=== PATIENT | male | born 1950 | race Caucasian/White ===

== ENCOUNTER 2020-01-28 19:42 | Emergency (ER) | payer MEDICARE ==
[2020-01-28] MEDS ORDERED: Insulin Regular 300 UNITS/3 ML VIAL ONE (20:13)
[2020-01-28 20:16] LABS: Bilirubin Negative (Negative); Blood, Urine Negative (Negative); Clarity Clear (Clear); Glucose, Urine (Dipstick) 500 mg/dL (Negative); Leukocyte Negative (Negative); Nitrite Negative (Negative); Protein, Urine (Dipstick) Negative (Neg-Trace); Urobilinogen 0.2 mg/dL (Less than 2)
[2020-01-28 20:20] LABS: #Basophils 0.1 thou/uL (0.0-0.2); #Eosinphils 0.4 thou/uL (0.0-0.7); #Lymphocytes 2.7 thou/uL (1.20-3.40); #Monocytes 0.9 thou/uL (0.11-0.59); #Neutrophils 5.5 thou/uL (1.40-6.50); %Basophils 1.4 % (0.0-1.0); %Eosinophils 4.2 % (0.0-10.0); %Lymphocytes 28.1 % (21.0-51.0); %Neutrophils 57.3 % (42.0-75.0); Hemoglobin 12.3 g/dL (14.0-18.0); Mean Corpuscular HGB CONC 30.2 g/dL (32.0-36.0); Mean Corpuscular Hemoglobin 28.1 pg (27.0-31.0); Mean Corpuscular Volume 93.2 fL (78.0-98.0); Mean Platelet Volume 10.6 fL (7.4-10.4); Platelet Count 189 thou/uL (130-400); RBC Distribution Width 12.9 % (11.5-14.5); Red Blood Cell (RBC) Count 4.38 mill/uL (4.70-6.10); White Blood Cell (WBC) Count 9.6 thou/uL (4.8-10.8)
[2020-01-28 20:27] LABS: ALT (SGPT) 16 U/L (8-55); AST (SGOT) 12 U/L (5-34); Albumin 3.7 g/dL (3.4-4.8); Alkaline Phosphatase 56 U/L (40-110); Anion Gap 13 mmol/L (10-20); BUN (Urea Nitrogen) 13 mg/dL (8.4-25.7); Bilirubin, Total 0.3 mg/dL (0.2-1.2); Calc. Creatinine Clearance 0 mL/min (70-130); Calcium 8.6 mg/dL (7.8-10.44); Carbon Dioxide 27 mmol/L (23-31); Chloride 95 mmol/L (98-107); Estimated GFR-MDRD 78; Globulin 2.8 g/dL (2.4-3.5); Glucose 455 mg/dL (80-115); Potassium 4.1 mmol/L (3.5-5.1); Protein, Total 6.5 g/dL (5.8-8.1); Sodium 131 mmol/L (136-145)
== END 2020-01-28 22:00 | disposition home or self-care (01) ==
LOC: NAV ERS 19:42
DX: E11.65 Type 2 diabetes mellitus with hyperglycemia (principal); E11.40 Type 2 diabetes mellitus with diabetic neuropathy, unspecified; E78.5 Hyperlipidemia, unspecified; E78.00 Pure hypercholesterolemia, unspecified; I10 Essential (primary) hypertension; F41.9 Anxiety disorder, unspecified; K21.9 Gastro-esophageal reflux disease without esophagitis; I25.10 Atherosclerotic heart disease of native coronary artery without angina pectoris; Z79.4 Long term (current) use of insulin; Z87.891 Personal history of nicotine dependence; Z79.899 Other long term (current) drug therapy; Z79.82 Long term (current) use of aspirin
CPT/HCPCS: 36416; 80053; 81003; 84484; 85025; 93005; J1815

== ENCOUNTER 2020-03-02 13:00 | Emergency (ER) | payer MEDICARE, OTHER ==
[2020-03-03 13:29] LABS: SARS-CoV-2 MS2 Positive; SARS-CoV-2 N Gene Negative; SARS-CoV-2 S Gene Negative; SARS-CoV-2 by NAA Not Detected (NotDetected); SARS-CoV-2 orf1ab Negative
== END 2020-03-02 14:50 | disposition home or self-care (01) ==
LOC: NAV ERS 13:00
DX: H53.8 Other visual disturbances (principal); Z20.828 Contact with and (suspected) exposure to other viral communicable diseases; I25.10 Atherosclerotic heart disease of native coronary artery without angina pectoris; E11.40 Type 2 diabetes mellitus with diabetic neuropathy, unspecified; Z79.4 Long term (current) use of insulin; E78.5 Hyperlipidemia, unspecified; E78.00 Pure hypercholesterolemia, unspecified; I10 Essential (primary) hypertension; F41.9 Anxiety disorder, unspecified; Z87.891 Personal history of nicotine dependence; Z79.82 Long term (current) use of aspirin; Z79.899 Other long term (current) drug therapy
CPT/HCPCS: 99284; U0003; 87635

== ENCOUNTER 2020-03-08 21:00 | Emergency (ER) | payer MEDICARE, OTHER ==
[2020-03-08] MEDS ORDERED: Aspirin Chewable 81 MG TAB ONE (21:39)
[2020-03-08 21:46] LABS: #Basophils 0.2 thou/uL (0.0-0.2); #Eosinphils 0.4 thou/uL (0.0-0.7); #Lymphocytes 3.4 thou/uL (1.20-3.40); #Neutrophils 6.5 thou/uL (1.40-6.50); %Basophils 1.4 % (0.0-1.0); %Eosinophils 3.4 % (0.0-10.0); %Lymphocytes 29.8 % (21.0-51.0); %Monocytes 8.8 % (0.0-10.0); %Neutrophils 56.5 % (42.0-75.0); Hemoglobin 12.8 g/dL (14.0-18.0); Mean Corpuscular HGB CONC 30.6 g/dL (32.0-36.0); Mean Corpuscular Hemoglobin 28.3 pg (27.0-31.0); Mean Corpuscular Volume 92.5 fL (78.0-98.0); Platelet Count 189 thou/uL (130-400); RBC Distribution Width 12.9 % (11.5-14.5); Red Blood Cell (RBC) Count 4.54 mill/uL (4.70-6.10); White Blood Cell (WBC) Count 11.4 thou/uL (4.8-10.8)
[2020-03-08] MEDS ORDERED: Nitroglycerin 2% Ointment 1 INCH/1 GM Packet ONE (21:59)
[2020-03-08 22:00] LABS: ALT (SGPT) 15 U/L (8-55); AST (SGOT) 18 U/L (5-34); Albumin 4.1 g/dL (3.4-4.8); Alkaline Phosphatase 56 U/L (40-110); Anion Gap 14 mmol/L (10-20); BUN (Urea Nitrogen) 16 mg/dL (8.4-25.7); Bilirubin, Total 0.3 mg/dL (0.2-1.2); Calc. Creatinine Clearance 0 mL/min (70-130); Calcium 9.6 mg/dL (7.8-10.44); Carbon Dioxide 26 mmol/L (23-31); Chloride 100 mmol/L (98-107); Estimated GFR-MDRD Greater than 90; Globulin 3.1 g/dL (2.4-3.5); Glucose 70 mg/dL (80-115); Potassium 3.3 mmol/L (3.5-5.1); Protein, Total 7.2 g/dL (5.8-8.1); Sodium 137 mmol/L (136-145)
--- NOTE | 2020-03-08 22:03 | RAD ---
EXAM: CHEST ONE VIEW HISTORY: Chest pain and dizziness. COMPARISON: None FINDINGS: Cardiac silhouette is magnified by projection. There is questionable small spiculated density in the left suprahilar region. This is most likely attributable to superimposition of vascular structures, but a follow-up PA and lateral chest x-ray is recommended. Lungs are otherwise clear. No consolidatio n or pleural fluid is appreciated.. The osseous structures are intact. IMPRESSION: Suggestion of a spiculated density left suprahilar region. This is probably attributable to the vascu lar structures and accentuated by portable technique. A follow-up PA and lateral chest x-ray is recommended for further evaluation.
[2020-03-08 22:19] LABS: CKMB 2.5 ng/mL (0-6.6)
== END 2020-03-08 22:35 | disposition short-term general hospital (02) ==
LOC: NAV ERS 21:00
DX: I16.0 Hypertensive urgency (principal); R07.9 Chest pain, unspecified; E11.40 Type 2 diabetes mellitus with diabetic neuropathy, unspecified; K21.9 Gastro-esophageal reflux disease without esophagitis; E78.5 Hyperlipidemia, unspecified; I10 Essential (primary) hypertension; Z87.891 Personal history of nicotine dependence
CPT/HCPCS: 71045; 80053; 82553; 84484; 85025; 93005; 94760

== ENCOUNTER 2020-05-01 09:29 | Emergency (ER) | payer MEDICARE ==
[2020-05-01] MEDS ORDERED: Silver Nitrate Application 1 EACH ONE (09:36)
[2020-05-01] MEDS ORDERED: Boostrix 0.5 ML VIAL ONE (09:41)
== END 2020-05-01 09:50 | disposition home or self-care (01) ==
LOC: NAV ERS 09:29
DX: S51.812A Laceration without foreign body of left forearm, initial encounter (principal); I25.10 Atherosclerotic heart disease of native coronary artery without angina pectoris; E11.40 Type 2 diabetes mellitus with diabetic neuropathy, unspecified; K21.9 Gastro-esophageal reflux disease without esophagitis; E78.5 Hyperlipidemia, unspecified; E78.00 Pure hypercholesterolemia, unspecified; I10 Essential (primary) hypertension; F41.9 Anxiety disorder, unspecified; Z87.891 Personal history of nicotine dependence; Z23 Encounter for immunization; Z79.4 Long term (current) use of insulin; Z79.899 Other long term (current) drug therapy; W22.8XXA Striking against or struck by other objects, initial encounter
CPT/HCPCS: 90471; 90715

== ENCOUNTER 2020-07-06 20:39 | Emergency (ER) | payer MEDICARE ==
[2020-07-06] MEDS ORDERED: Aspirin Chewable 81 MG TAB ONE (20:50)
[2020-07-06] MEDS ORDERED: Enoxaparin Sodium 100 MG/ML SYRINGE ONE (20:50)
[2020-07-06 21:04] LABS: #Basophils 0.1 thou/uL (0.0-0.2); #Eosinphils 0.5 thou/uL (0.0-0.7); #Lymphocytes 3.2 thou/uL (1.20-3.40); #Neutrophils 6.6 thou/uL (1.40-6.50); %Basophils 1.1 % (0.0-1.0); %Eosinophils 4.8 % (0.0-10.0); %Monocytes 8.4 % (0.0-10.0); %Neutrophils 57.7 % (42.0-75.0); Hemoglobin 15.2 g/dL (14.0-18.0); Mean Corpuscular HGB CONC 33.3 g/dL (32.0-36.0); Mean Corpuscular Hemoglobin 29.9 pg (27.0-31.0); Mean Corpuscular Volume 89.8 fL (78.0-98.0); Mean Platelet Volume 9.2 fL (7.4-10.4); Platelet Count 214 thou/uL (130-400); RBC Distribution Width 12.5 % (11.5-14.5); Red Blood Cell (RBC) Count 5.08 mill/uL (4.70-6.10); White Blood Cell (WBC) Count 11.5 thou/uL (4.8-10.8)
[2020-07-06 21:18] LABS: ALT (SGPT) 16 U/L (8-55); AST (SGOT) 17 U/L (5-34); Alkaline Phosphatase 54 U/L (40-110); Anion Gap 14 mmol/L (10-20); BUN (Urea Nitrogen) 24 mg/dL (8.4-25.7); Bilirubin, Total 0.3 mg/dL (0.2-1.2); Calc. Creatinine Clearance 0 mL/min (70-130); Calcium 9.1 mg/dL (7.8-10.44); Carbon Dioxide 27 mmol/L (23-31); Chloride 101 mmol/L (98-107); Estimated GFR-MDRD 73; Globulin 3.4 g/dL (2.4-3.5); Glucose 137 mg/dL (83-110); Lipase 40 U/L (8-78); Potassium 4.1 mmol/L (3.5-5.1); Protein, Total 7.4 g/dL (5.8-8.1); Sodium 138 mmol/L (136-145)
--- NOTE | 2020-07-06 21:23 | RAD ---
PORTABLE CHEST: 07/06/20 HISTORY: Shortness of breath. COMPARISON: 03/08/90 FINDINGS/IMPRESSION: Heart size mildly prominent and stable. Interstitial markings are prominent but also stable from prio r exam. Parenchymal stranding in the upper lung brenner appear stable. No definite infiltrate or acute interval change noted. POS: [facility]W
== END 2020-07-06 22:19 | disposition short-term general hospital (02) ==
LOC: NAV ERS 20:39
DX: I24.9 Acute ischemic heart disease, unspecified (principal); I10 Essential (primary) hypertension; E11.40 Type 2 diabetes mellitus with diabetic neuropathy, unspecified; K21.9 Gastro-esophageal reflux disease without esophagitis; E78.5 Hyperlipidemia, unspecified; E78.00 Pure hypercholesterolemia, unspecified; Z87.891 Personal history of nicotine dependence; Z79.899 Other long term (current) drug therapy
CPT/HCPCS: 36415; 71045; 80053; 83605; 83690; 83880; 84484; 85025; 93005; 96372; J1650

== ENCOUNTER 2020-08-20 07:56 | Emergency (ER) | payer MEDICARE | END 2020-08-20 08:50 | disposition home or self-care (01) | LOC: NAV ERS 07:56 | DX: L02.31 Cutaneous abscess of buttock (principal); E11.9 Type 2 diabetes mellitus without complications; Z79.4 Long term (current) use of insulin; K21.9 Gastro-esophageal reflux disease without esophagitis; I10 Essential (primary) hypertension; I25.10 Atherosclerotic heart disease of native coronary artery without angina pectoris; E78.5 Hyperlipidemia, unspecified; E78.00 Pure hypercholesterolemia, unspecified; Z87.891 Personal history of nicotine dependence; Z79.82 Long term (current) use of aspirin; Z79.899 Other long term (current) drug therapy | CPT/HCPCS: 99282 ==

== ENCOUNTER 2020-09-02 09:56 | Emergency (ER) | payer MEDICARE ==
[2020-09-02 11:08] LABS: #Basophils 0.1 thou/uL (0.0-0.2); #Eosinphils 0.4 thou/uL (0.0-0.7); #Lymphocytes 2.5 thou/uL (1.20-3.40); #Monocytes 0.9 thou/uL (0.11-0.59); #Neutrophils 5.8 thou/uL (1.40-6.50); %Eosinophils 3.8 % (0.0-10.0); %Lymphocytes 25.6 % (21.0-51.0); %Monocytes 9.3 % (0.0-10.0); %Neutrophils 60.2 % (42.0-75.0); Hemoglobin 14.8 g/dL (14.0-18.0); Mean Corpuscular HGB CONC 32.9 g/dL (32.0-36.0); Mean Corpuscular Hemoglobin 29.4 pg (27.0-31.0); Mean Corpuscular Volume 89.4 fL (78.0-98.0); Mean Platelet Volume 8.5 fL (7.4-10.4); Platelet Count 191 thou/uL (130-400); Red Blood Cell (RBC) Count 5.04 mill/uL (4.70-6.10); White Blood Cell (WBC) Count 9.6 thou/uL (4.8-10.8)
--- NOTE | 2020-09-02 11:14 | RAD ---
EXAM: CHEST ONE VIEW HISTORY: Chest tightness. COMPARISON: 07/06/2020 FINDINGS: Cardiac silhouette is magnified by projection. Mild increased interstitial densities are seen in the region of the midlung zones bilaterally and at the left lung base similar to prior study which may be related to mild chronic lung changes. No consolidation or pleural fluid is identified. Vascular ca lcifications are seen in the thoracic aorta. No interval change from prior exam. IMPRESSION: Mild prominence of interstitial densities in the midlung zones bilaterally and left lung base which m ay be related to mild chronic lung changes. No consolidation or pleural fluid is appreciated.
[2020-09-02 11:19] LABS: ALT (SGPT) 17 U/L (8-55); AST (SGOT) 16 U/L (5-34); Albumin 4.1 g/dL (3.4-4.8); Alkaline Phosphatase 55 U/L (40-110); Anion Gap 17 mmol/L (10-20); BUN (Urea Nitrogen) 25 mg/dL (8.4-25.7); Bilirubin, Total 0.5 mg/dL (0.2-1.2); CK (CPK) 59 U/L (30-200); Calc. Creatinine Clearance 0 mL/min (70-130); Calcium 9.6 mg/dL (7.8-10.44); Carbon Dioxide 27 mmol/L (23-31); Chloride 100 mmol/L (98-107); Globulin 3.5 g/dL (2.4-3.5); Glucose 247 mg/dL (83-110); Potassium 4.6 mmol/L (3.5-5.1); Protein, Total 7.6 g/dL (5.8-8.1); Sodium 139 mmol/L (136-145)
[2020-09-03 03:41] LABS: SARS-CoV-2 PCR by NAA Not Detected (NotDetected)
== END 2020-09-02 12:25 | disposition home or self-care (01) ==
LOC: NAV ERS 09:56
DX: I25.10 Atherosclerotic heart disease of native coronary artery without angina pectoris (principal); R05 Cough; E11.40 Type 2 diabetes mellitus with diabetic neuropathy, unspecified; I10 Essential (primary) hypertension; K21.9 Gastro-esophageal reflux disease without esophagitis; E78.5 Hyperlipidemia, unspecified; E78.00 Pure hypercholesterolemia, unspecified; Z87.891 Personal history of nicotine dependence; Z79.4 Long term (current) use of insulin; Z79.899 Other long term (current) drug therapy; Z79.82 Long term (current) use of aspirin; Z20.822 Contact with and (suspected) exposure to COVID-19
CPT/HCPCS: 71045; 80053; 82550; 84484; 85025; 93005; 94760; 99285; U0003; U0005; 87635

== ENCOUNTER 2020-09-05 13:00 | Emergency (ER) | payer MEDICARE | END 2020-09-05 14:00 | disposition home or self-care (01) | LOC: NAV ERS 13:00 | DX: R19.7 Diarrhea, unspecified (principal); I25.10 Atherosclerotic heart disease of native coronary artery without angina pectoris; E11.40 Type 2 diabetes mellitus with diabetic neuropathy, unspecified; K21.9 Gastro-esophageal reflux disease without esophagitis; E78.5 Hyperlipidemia, unspecified; E78.00 Pure hypercholesterolemia, unspecified; I10 Essential (primary) hypertension; Z87.891 Personal history of nicotine dependence; Z79.899 Other long term (current) drug therapy; Z79.4 Long term (current) use of insulin; Z79.82 Long term (current) use of aspirin | CPT/HCPCS: 99283 ==

== ENCOUNTER 2020-09-16 08:35 | Emergency (ER) | payer MEDICARE | END 2020-09-16 09:06 | disposition home or self-care (01) | LOC: NAV ERS 08:35 | DX: R19.7 Diarrhea, unspecified (principal); E11.9 Type 2 diabetes mellitus without complications; K21.9 Gastro-esophageal reflux disease without esophagitis; E78.5 Hyperlipidemia, unspecified; E78.00 Pure hypercholesterolemia, unspecified; I10 Essential (primary) hypertension; Z87.891 Personal history of nicotine dependence; Z79.82 Long term (current) use of aspirin; Z79.4 Long term (current) use of insulin; Z79.899 Other long term (current) drug therapy | CPT/HCPCS: 99283 ==

== ENCOUNTER 2020-11-16 06:51 | Emergency (ER) | payer MEDICARE | END 2020-11-16 07:27 | disposition home or self-care (01) | LOC: NAV ERS 06:51 | DX: Z48.817 Encounter for surgical aftercare following surgery on the skin and subcutaneous tissue (principal); I25.10 Atherosclerotic heart disease of native coronary artery without angina pectoris; I25.2 Old myocardial infarction; E11.40 Type 2 diabetes mellitus with diabetic neuropathy, unspecified; K21.9 Gastro-esophageal reflux disease without esophagitis; E78.5 Hyperlipidemia, unspecified; E78.00 Pure hypercholesterolemia, unspecified; I10 Essential (primary) hypertension; Z87.891 Personal history of nicotine dependence; Z79.4 Long term (current) use of insulin; Z79.899 Other long term (current) drug therapy; Z79.82 Long term (current) use of aspirin | CPT/HCPCS: 99282 ==

== ENCOUNTER 2020-11-28 08:13 | Emergency (ER) | payer MEDICARE ==
[2020-11-28] MEDS ORDERED: Bacitracin 1 PK ONE (10:01)
== END 2020-11-28 10:10 | disposition home or self-care (01) ==
LOC: NAV ERS 08:13
DX: G89.18 Other acute postprocedural pain (principal); M54.6 Pain in thoracic spine; E11.40 Type 2 diabetes mellitus with diabetic neuropathy, unspecified; K21.9 Gastro-esophageal reflux disease without esophagitis; E78.5 Hyperlipidemia, unspecified; I10 Essential (primary) hypertension; Z87.891 Personal history of nicotine dependence
CPT/HCPCS: 99283

== ENCOUNTER 2020-12-03 14:37 | Emergency (ER) | payer MEDICARE | END 2020-12-03 15:00 | disposition home or self-care (01) | LOC: NAV ERS 14:37 | DX: L29.9 Pruritus, unspecified (principal); I25.2 Old myocardial infarction; E11.40 Type 2 diabetes mellitus with diabetic neuropathy, unspecified; K21.9 Gastro-esophageal reflux disease without esophagitis; E78.5 Hyperlipidemia, unspecified; E78.00 Pure hypercholesterolemia, unspecified; I10 Essential (primary) hypertension; Z79.4 Long term (current) use of insulin | CPT/HCPCS: 99281 ==

== ENCOUNTER 2021-03-16 15:04 | Emergency (ER) | payer MEDICARE | END 2021-03-16 15:54 | disposition home or self-care (01) | LOC: NAV ERS 15:04 | DX: S60.812A Abrasion of left wrist, initial encounter (principal); I25.10 Atherosclerotic heart disease of native coronary artery without angina pectoris; E11.40 Type 2 diabetes mellitus with diabetic neuropathy, unspecified; K21.9 Gastro-esophageal reflux disease without esophagitis; E78.5 Hyperlipidemia, unspecified; E78.00 Pure hypercholesterolemia, unspecified; I10 Essential (primary) hypertension; Z87.891 Personal history of nicotine dependence; Z79.82 Long term (current) use of aspirin; Z79.84 Long term (current) use of oral hypoglycemic drugs; Z79.899 Other long term (current) drug therapy | CPT/HCPCS: 99283 ==

== ENCOUNTER 2021-03-23 16:52 | Emergency (ER) | payer MEDICARE ==
[2021-03-23] MEDS ORDERED: Nitroglycerin 0.4 MG TAB (25 Tab Bottle) ONE (16:54)
[2021-03-23 17:17] LABS: #Basophils 0.1 thou/uL (0.0-0.2); #Eosinphils 0.7 thou/uL (0.0-0.7); #Lymphocytes 3.3 thou/uL (1.20-3.40); #Neutrophils 6.1 thou/uL (1.40-6.50); %Basophils 1.3 % (0.0-1.0); %Lymphocytes 29.4 % (21.0-51.0); %Monocytes 9.3 % (0.0-10.0); Mean Corpuscular HGB CONC 30.8 g/dL (32.0-36.0); Mean Corpuscular Hemoglobin 28.3 pg (27.0-31.0); Mean Corpuscular Volume 91.9 fL (78.0-98.0); Mean Platelet Volume 8.6 fL (7.4-10.4); Platelet Count 204 thou/uL (130-400); RBC Distribution Width 12.5 % (11.5-14.5); Red Blood Cell (RBC) Count 4.58 mill/uL (4.70-6.10); White Blood Cell (WBC) Count 11.2 thou/uL (4.8-10.8)
[2021-03-23 17:30] LABS: ALT (SGPT) 13 U/L (8-55); AST (SGOT) 13 U/L (5-34); Albumin 3.9 g/dL (3.4-4.8); Alkaline Phosphatase 55 U/L (40-110); Anion Gap 16 mmol/L (10-20); BUN (Urea Nitrogen) 25 mg/dL (8.4-25.7); Bilirubin, Total 0.3 mg/dL (0.2-1.2); Calc. Creatinine Clearance 0 mL/min (70-130); Calcium 9.3 mg/dL (7.8-10.44); Carbon Dioxide 24 mmol/L (23-31); Chloride 97 mmol/L (98-107); Globulin 3.4 g/dL (2.4-3.5); Glucose 313 mg/dL (83-110); Potassium 4.1 mmol/L (3.5-5.1); Protein, Total 7.3 g/dL (5.8-8.1); Sodium 133 mmol/L (136-145)
[2021-03-23] MEDS ORDERED: Aspirin Chewable 81 MG TAB ONE (17:59)
[2021-03-23] MEDS ORDERED: Acetaminophen 500 MG TAB ONE (19:13)
[2021-03-23 20:11] LABS: SARS-CoV-2 NAA Rapid Test Not Detected (NotDetected)
[2021-03-23] MEDS ORDERED: Enoxaparin Sodium 100 MG/ML SYRINGE ONE (20:33)
[2021-03-23 23:21] LABS: Troponin I 0.017 ng/mL (< 0.028)
== END 2021-03-23 23:14 | disposition short-term general hospital (02) ==
LOC: NAV ERS 16:52
DX: R07.89 Other chest pain (principal); R06.02 Shortness of breath; R05 Cough; Z20.822 Contact with and (suspected) exposure to COVID-19; I25.10 Atherosclerotic heart disease of native coronary artery without angina pectoris; E11.40 Type 2 diabetes mellitus with diabetic neuropathy, unspecified; K21.9 Gastro-esophageal reflux disease without esophagitis; E78.5 Hyperlipidemia, unspecified; E78.00 Pure hypercholesterolemia, unspecified; I10 Essential (primary) hypertension; Z79.84 Long term (current) use of oral hypoglycemic drugs; Z79.82 Long term (current) use of aspirin; Z79.899 Other long term (current) drug therapy
CPT/HCPCS: 0240U; 71045; 82962; 84484 ×2; 85379; 93005; 96372; 99285; 36415; 36416; 80053; 84443; 85025; J1650

== ENCOUNTER 2021-03-27 11:02 | Emergency (ER) | payer OTHER, MEDICARE ==
[2021-03-27 11:40] LABS: #Basophils 0.1 thou/uL (0.0-0.2); #Eosinphils 0.6 thou/uL (0.0-0.7); #Lymphocytes 2.5 thou/uL (1.20-3.40); #Neutrophils 7.1 thou/uL (1.40-6.50); %Basophils 1.1 % (0.0-1.0); %Eosinophils 5.3 % (0.0-10.0); %Lymphocytes 22.2 % (21.0-51.0); %Monocytes 8.7 % (0.0-10.0); %Neutrophils 62.7 % (42.0-75.0); Hemoglobin 13.7 g/dL (14.0-18.0); Mean Corpuscular HGB CONC 31.3 g/dL (32.0-36.0); Mean Corpuscular Hemoglobin 28.8 pg (27.0-31.0); Mean Platelet Volume 8.8 fL (7.4-10.4); Platelet Count 195 thou/uL (130-400); RBC Distribution Width 12.8 % (11.5-14.5); Red Blood Cell (RBC) Count 4.76 mill/uL (4.70-6.10); White Blood Cell (WBC) Count 11.3 thou/uL (4.8-10.8)
[2021-03-27 11:42] LABS: ALT (SGPT) 18 U/L (8-55); AST (SGOT) 17 U/L (5-34); Albumin 3.8 g/dL (3.4-4.8); Alkaline Phosphatase 49 U/L (40-110); Anion Gap 15 mmol/L (10-20); BUN (Urea Nitrogen) 28 mg/dL (8.4-25.7); Bilirubin, Total 0.4 mg/dL (0.2-1.2); Calc. Creatinine Clearance 0 mL/min (70-130); Calcium 9.4 mg/dL (7.8-10.44); Carbon Dioxide 26 mmol/L (23-31); Chloride 101 mmol/L (98-107); Globulin 3.3 g/dL (2.4-3.5); Glucose 196 mg/dL (83-110); Potassium 4.3 mmol/L (3.5-5.1); Protein, Total 7.1 g/dL (5.8-8.1); Sodium 138 mmol/L (136-145)
== END 2021-03-27 12:33 | disposition home or self-care (01) ==
LOC: NAV ERS 11:02
DX: S00.93XA Contusion of unspecified part of head, initial encounter (principal); S50.312A Abrasion of left elbow, initial encounter; M54.6 Pain in thoracic spine; R07.89 Other chest pain; I25.10 Atherosclerotic heart disease of native coronary artery without angina pectoris; I25.2 Old myocardial infarction; E11.40 Type 2 diabetes mellitus with diabetic neuropathy, unspecified; K21.9 Gastro-esophageal reflux disease without esophagitis; E78.5 Hyperlipidemia, unspecified; E78.00 Pure hypercholesterolemia, unspecified; I10 Essential (primary) hypertension; Z79.02 Long term (current) use of antithrombotics/antiplatelets; Z79.84 Long term (current) use of oral hypoglycemic drugs; Z79.899 Other long term (current) drug therapy; Z79.82 Long term (current) use of aspirin; W01.198A Fall on same level from slipping, tripping and stumbling with subsequent striking against other object, initial encounter
CPT/HCPCS: 36416; 70450; 72125; 72128; 80053; 84484; 85025; 93005

== ENCOUNTER 2021-04-09 21:54 | Emergency (ER) | payer MEDICARE, OTHER ==
[2021-04-09 22:41] LABS: #Basophils 0.1 thou/uL (0.0-0.2); #Eosinphils 0.8 thou/uL (0.0-0.7); #Lymphocytes 3.3 thou/uL (1.20-3.40); #Neutrophils 6.4 thou/uL (1.40-6.50); %Basophils 1.1 % (0.0-1.0); %Eosinophils 6.6 % (0.0-10.0); %Lymphocytes 28.8 % (21.0-51.0); %Monocytes 8.2 % (0.0-10.0); %Neutrophils 55.4 % (42.0-75.0); Mean Corpuscular HGB CONC 31.2 g/dL (32.0-36.0); Mean Corpuscular Hemoglobin 28.7 pg (27.0-31.0); Platelet Count 178 thou/uL (130-400); RBC Distribution Width 12.7 % (11.5-14.5); Red Blood Cell (RBC) Count 4.53 mill/uL (4.70-6.10); White Blood Cell (WBC) Count 11.6 thou/uL (4.8-10.8)
[2021-04-09 22:53] LABS: ALT (SGPT) 15 U/L (8-55); AST (SGOT) 15 U/L (5-34); Albumin 3.7 g/dL (3.4-4.8); Alkaline Phosphatase 53 U/L (40-110); Anion Gap 12 mmol/L (10-20); BUN (Urea Nitrogen) 17 mg/dL (8.4-25.7); Bilirubin, Total 0.4 mg/dL (0.2-1.2); Calc. Creatinine Clearance 0 mL/min (70-130); Calcium 9.4 mg/dL (7.8-10.44); Carbon Dioxide 30 mmol/L (23-31); Chloride 100 mmol/L (98-107); Globulin 3.3 g/dL (2.4-3.5); Glucose 204 mg/dL (83-110); Magnesium 1.6 mg/dL (1.6-2.6); Potassium 3.9 mmol/L (3.5-5.1); Sodium 138 mmol/L (136-145)
[2021-04-10 16:25] LABS: SARS-CoV-2 PCR by NAA Not Detected (NotDetected)
== END 2021-04-10 00:30 | disposition home or self-care (01) ==
LOC: NAV ERS 21:54
DX: J06.9 Acute upper respiratory infection, unspecified (principal); Z20.822 Contact with and (suspected) exposure to COVID-19; E11.40 Type 2 diabetes mellitus with diabetic neuropathy, unspecified; K21.9 Gastro-esophageal reflux disease without esophagitis; E78.5 Hyperlipidemia, unspecified; Z87.891 Personal history of nicotine dependence; Z79.899 Other long term (current) drug therapy
CPT/HCPCS: 71045; 80053; 83605; 83735; 83880; 84484; 85025; 93005; 94760; U0003; U0005

== ENCOUNTER 2021-05-13 18:50 | Emergency (ER) | payer MEDICARE ==
[2021-05-13] MEDS ORDERED: Bacitracin 1 PK ONE (19:29)
== END 2021-05-13 19:51 | disposition home or self-care (01) ==
LOC: NAV ERS 18:50
DX: G89.18 Other acute postprocedural pain (principal); M79.652 Pain in left thigh; E11.40 Type 2 diabetes mellitus with diabetic neuropathy, unspecified; K21.9 Gastro-esophageal reflux disease without esophagitis; E78.5 Hyperlipidemia, unspecified; I10 Essential (primary) hypertension; Z87.891 Personal history of nicotine dependence; Z79.899 Other long term (current) drug therapy
CPT/HCPCS: 99283

== ENCOUNTER 2021-05-22 16:37 | Emergency (ER) | payer MEDICARE | END 2021-05-22 16:54 | disposition home or self-care (01) | LOC: NAV ERS 16:37 | DX: S50.312A Abrasion of left elbow, initial encounter (principal); I25.10 Atherosclerotic heart disease of native coronary artery without angina pectoris; I10 Essential (primary) hypertension; I25.2 Old myocardial infarction; E11.40 Type 2 diabetes mellitus with diabetic neuropathy, unspecified; K21.9 Gastro-esophageal reflux disease without esophagitis; E78.5 Hyperlipidemia, unspecified; E78.00 Pure hypercholesterolemia, unspecified; Z79.4 Long term (current) use of insulin; Z87.891 Personal history of nicotine dependence; Z79.82 Long term (current) use of aspirin; Z79.899 Other long term (current) drug therapy; W22.8XXA Striking against or struck by other objects, initial encounter | CPT/HCPCS: 99283 ==

== ENCOUNTER 2021-06-21 09:14 | Emergency (ER) | payer MEDICARE ==
[2021-06-21 23:49] LABS: SARS-CoV-2 PCR by NAA Not Detected (NotDetected)
== END 2021-06-21 10:20 | disposition home or self-care (01) ==
LOC: NAV ERS 09:14
DX: J30.9 Allergic rhinitis, unspecified (principal); J06.9 Acute upper respiratory infection, unspecified; Z20.822 Contact with and (suspected) exposure to COVID-19; I25.10 Atherosclerotic heart disease of native coronary artery without angina pectoris; E11.40 Type 2 diabetes mellitus with diabetic neuropathy, unspecified; E78.5 Hyperlipidemia, unspecified; E78.00 Pure hypercholesterolemia, unspecified; I10 Essential (primary) hypertension; Z87.891 Personal history of nicotine dependence; Z79.82 Long term (current) use of aspirin; Z79.84 Long term (current) use of oral hypoglycemic drugs; Z79.899 Other long term (current) drug therapy
CPT/HCPCS: 99283; U0003; U0005

== ENCOUNTER 2021-08-17 09:53 | Emergency (ER) | payer MEDICARE ==
[2021-08-18 15:15] LABS: SARS-CoV-2 PCR by NAA DETECTED (NotDetected)
== END 2021-08-17 11:40 | disposition home or self-care (01) ==
LOC: NAV ERS 09:53
DX: U07.1 COVID-19 (principal); I10 Essential (primary) hypertension; E78.00 Pure hypercholesterolemia, unspecified; I25.10 Atherosclerotic heart disease of native coronary artery without angina pectoris; I25.2 Old myocardial infarction; Z87.891 Personal history of nicotine dependence; Z79.82 Long term (current) use of aspirin; Z79.84 Long term (current) use of oral hypoglycemic drugs; Z79.02 Long term (current) use of antithrombotics/antiplatelets
CPT/HCPCS: 87804; 99283; U0003; U0005

== ENCOUNTER 2021-09-16 08:52 | Emergency (ER) | payer MEDICARE | END 2021-09-16 09:35 | disposition home or self-care (01) | LOC: NAV ERS 08:52 | DX: I10 Essential (primary) hypertension (principal); I25.10 Atherosclerotic heart disease of native coronary artery without angina pectoris; I25.2 Old myocardial infarction; E11.9 Type 2 diabetes mellitus without complications; Z79.4 Long term (current) use of insulin; E11.40 Type 2 diabetes mellitus with diabetic neuropathy, unspecified; K21.9 Gastro-esophageal reflux disease without esophagitis; E78.5 Hyperlipidemia, unspecified; Z87.891 Personal history of nicotine dependence; Z79.899 Other long term (current) drug therapy; Z79.82 Long term (current) use of aspirin; Z79.84 Long term (current) use of oral hypoglycemic drugs | CPT/HCPCS: 99283 ==

== ENCOUNTER 2021-10-17 13:27 | Emergency (ER) | payer MEDICARE | END 2021-10-17 14:30 | disposition home or self-care (01) | LOC: NAV ERS 13:27 | DX: F41.9 Anxiety disorder, unspecified (principal); I10 Essential (primary) hypertension; E11.40 Type 2 diabetes mellitus with diabetic neuropathy, unspecified; K21.9 Gastro-esophageal reflux disease without esophagitis; E78.5 Hyperlipidemia, unspecified; E78.00 Pure hypercholesterolemia, unspecified; I25.10 Atherosclerotic heart disease of native coronary artery without angina pectoris; I25.2 Old myocardial infarction; Z95.5 Presence of coronary angioplasty implant and graft; Z87.891 Personal history of nicotine dependence; Z79.82 Long term (current) use of aspirin; Z79.84 Long term (current) use of oral hypoglycemic drugs; Z79.899 Other long term (current) drug therapy | CPT/HCPCS: 36416; 99283 ==

== ENCOUNTER 2021-10-22 14:24 | Emergency (ER) | payer MEDICARE | END 2021-10-22 14:40 | disposition home or self-care (01) | LOC: NAV ERS 14:24 | DX: T63.441A Toxic effect of venom of bees, accidental (unintentional), initial encounter (principal); I10 Essential (primary) hypertension; E11.40 Type 2 diabetes mellitus with diabetic neuropathy, unspecified; E78.5 Hyperlipidemia, unspecified; E78.00 Pure hypercholesterolemia, unspecified; I25.10 Atherosclerotic heart disease of native coronary artery without angina pectoris; K21.9 Gastro-esophageal reflux disease without esophagitis; I25.2 Old myocardial infarction; Z95.5 Presence of coronary angioplasty implant and graft; Z79.4 Long term (current) use of insulin; Z87.891 Personal history of nicotine dependence; Z79.82 Long term (current) use of aspirin; Z79.899 Other long term (current) drug therapy | CPT/HCPCS: 99282 ==

== ENCOUNTER 2021-11-04 22:06 | Emergency (ER) | payer MEDICARE | END 2021-11-04 22:44 | disposition home or self-care (01) | LOC: NAV ERS 22:06 | DX: S00.412A Abrasion of left ear, initial encounter (principal); R07.9 Chest pain, unspecified; I49.3 Ventricular premature depolarization; I10 Essential (primary) hypertension; E78.5 Hyperlipidemia, unspecified; E78.00 Pure hypercholesterolemia, unspecified; I25.10 Atherosclerotic heart disease of native coronary artery without angina pectoris; E11.40 Type 2 diabetes mellitus with diabetic neuropathy, unspecified; K21.9 Gastro-esophageal reflux disease without esophagitis; I25.2 Old myocardial infarction; X58.XXXA Exposure to other specified factors, initial encounter; Z79.4 Long term (current) use of insulin; Z87.891 Personal history of nicotine dependence; Z95.5 Presence of coronary angioplasty implant and graft; Z79.82 Long term (current) use of aspirin; Z79.84 Long term (current) use of oral hypoglycemic drugs; Z79.899 Other long term (current) drug therapy | CPT/HCPCS: 93005 ==

== ENCOUNTER 2021-11-26 09:16 | Emergency (ER) | payer MEDICARE, OTHER | END 2021-11-26 10:07 | disposition home or self-care (01) | LOC: NAV ERS 09:16 | DX: J06.9 Acute upper respiratory infection, unspecified (principal); R19.7 Diarrhea, unspecified; E11.40 Type 2 diabetes mellitus with diabetic neuropathy, unspecified; I10 Essential (primary) hypertension; I25.10 Atherosclerotic heart disease of native coronary artery without angina pectoris; I25.2 Old myocardial infarction; K21.9 Gastro-esophageal reflux disease without esophagitis; E78.5 Hyperlipidemia, unspecified; E78.00 Pure hypercholesterolemia, unspecified; Z20.822 Contact with and (suspected) exposure to COVID-19; Z79.82 Long term (current) use of aspirin; Z79.84 Long term (current) use of oral hypoglycemic drugs; Z79.899 Other long term (current) drug therapy; Z87.891 Personal history of nicotine dependence | CPT/HCPCS: 99283; U0003; U0005 ==

== ENCOUNTER 2022-01-14 08:06 | Emergency (ER) | payer MEDICARE ==
[2022-01-14] MEDS ORDERED: Acetaminophen 500 MG TAB ONE (08:46)
[2022-01-14] MEDS ORDERED: Ketorolac Tromethamine 30 MG/ML VIAL ONE (08:46)
== END 2022-01-14 10:20 | disposition home or self-care (01) ==
LOC: NAV ERS 08:06
DX: M62.830 Muscle spasm of back (principal); I25.10 Atherosclerotic heart disease of native coronary artery without angina pectoris; I25.2 Old myocardial infarction; E11.9 Type 2 diabetes mellitus without complications; E11.40 Type 2 diabetes mellitus with diabetic neuropathy, unspecified; K21.9 Gastro-esophageal reflux disease without esophagitis; E78.5 Hyperlipidemia, unspecified; E78.00 Pure hypercholesterolemia, unspecified; I10 Essential (primary) hypertension; Z87.891 Personal history of nicotine dependence; Z79.82 Long term (current) use of aspirin; Z79.899 Other long term (current) drug therapy; Z79.01 Long term (current) use of anticoagulants; Z79.84 Long term (current) use of oral hypoglycemic drugs
CPT/HCPCS: 96372; 99283; J1885

== ENCOUNTER 2022-04-07 08:34 | Emergency (ER) | payer MEDICARE | END 2022-04-07 09:30 | disposition home or self-care (01) | LOC: NAV ERS 08:34 | DX: R23.8 Other skin changes (principal); E11.40 Type 2 diabetes mellitus with diabetic neuropathy, unspecified; K21.9 Gastro-esophageal reflux disease without esophagitis; E78.5 Hyperlipidemia, unspecified; I10 Essential (primary) hypertension; Z87.891 Personal history of nicotine dependence; Z79.899 Other long term (current) drug therapy | CPT/HCPCS: 99282 ==

== ENCOUNTER 2022-04-23 16:11 | Emergency (ER) | payer MEDICARE ==
[2022-04-23 16:46] LABS: Bilirubin Negative (Negative); Blood, Urine Negative (Negative); Clarity Clear (Clear); Glucose, Urine (Dipstick) >=1000 mg/dL (Negative); Ketone, Urine Negative (Negative); Leukocyte Negative (Negative); Nitrite Negative (Negative); Protein, Urine (Dipstick) Negative (Neg-Trace); Urobilinogen 0.2 mg/dL (Less than 2); pH, Urine 5.5 (5.0-9.0)
[2022-04-23 16:48] LABS: #Basophils 0.1 thou/uL (0.0-0.2); #Eosinphils 0.5 thou/uL (0.0-0.7); #Lymphocytes 2.8 thou/uL (1.20-3.40); #Monocytes 0.8 thou/uL (0.11-0.59); #Neutrophils 5.3 thou/uL (1.40-6.50); %Basophils 0.9 % (0.0-1.0); %Eosinophils 5.3 % (0.0-10.0); %Lymphocytes 29.1 % (21.0-51.0); %Monocytes 8.6 % (0.0-10.0); Hemoglobin 12.5 g/dL (14.0-18.0); Mean Corpuscular HGB CONC 31.2 g/dL (32.0-36.0); Mean Corpuscular Hemoglobin 29.1 pg (27.0-31.0); Mean Corpuscular Volume 93.3 fL (78.0-98.0); Mean Platelet Volume 11.6 fL (7.4-10.4); Platelet Count 192 thou/uL (130-400); RBC Distribution Width 13.4 % (11.5-14.5); White Blood Cell (WBC) Count 9.5 thou/uL (4.8-10.8)
[2022-04-23 16:51] LABS: Specific Gravity, Urine 1.008 (1.002-1.036)
[2022-04-23] MEDS ORDERED: Lantus 1000 UNITS/10 ML VIAL SC SCH (17:00)
[2022-04-23 17:05] LABS: ALT (SGPT) 21 U/L (8-55); AST (SGOT) 18 U/L (5-34); Albumin 3.9 g/dL (3.4-4.8); Alkaline Phosphatase 56 U/L (40-110); Anion Gap 17 mmol/L (10-20); BUN (Urea Nitrogen) 25 mg/dL (8.4-25.7); Bilirubin, Total 0.5 mg/dL (0.2-1.2); Calc. Creatinine Clearance 0 mL/min (70-130); Calcium 9.4 mg/dL (7.8-10.44); Carbon Dioxide 24 mmol/L (23-31); Chloride 95 mmol/L (98-107); Estimated GFR 66; Globulin 3.1 g/dL (2.4-3.5); Glucose 404 mg/dL (83-110); Potassium 4.5 mmol/L (3.5-5.1); Sodium 131 mmol/L (136-145)
== END 2022-04-23 17:53 | disposition home or self-care (01) ==
LOC: NAV ERS 16:11
DX: E11.65 Type 2 diabetes mellitus with hyperglycemia (principal); E11.40 Type 2 diabetes mellitus with diabetic neuropathy, unspecified; K21.9 Gastro-esophageal reflux disease without esophagitis; E78.00 Pure hypercholesterolemia, unspecified; Z87.891 Personal history of nicotine dependence; Z79.899 Other long term (current) drug therapy
CPT/HCPCS: 36416; 80053; 81003; 85025; 93005; 96372; J1815

== ENCOUNTER 2022-06-10 17:26 | Emergency (ER) | payer MEDICARE | END 2022-06-10 18:34 | disposition home or self-care (01) | LOC: NAV ERS 17:26 | DX: J06.9 Acute upper respiratory infection, unspecified (principal); I10 Essential (primary) hypertension; I25.2 Old myocardial infarction; I25.10 Atherosclerotic heart disease of native coronary artery without angina pectoris; E78.00 Pure hypercholesterolemia, unspecified; E11.9 Type 2 diabetes mellitus without complications; Z87.891 Personal history of nicotine dependence; Z79.4 Long term (current) use of insulin; Z79.84 Long term (current) use of oral hypoglycemic drugs; Z79.82 Long term (current) use of aspirin; Z79.899 Other long term (current) drug therapy | CPT/HCPCS: 87804; 99283 ==

== ENCOUNTER 2022-07-11 11:15 | Emergency (ER) | payer MEDICARE | END 2022-07-11 12:05 | disposition home or self-care (01) | LOC: NAV ERS 11:15 | DX: E11.649 Type 2 diabetes mellitus with hypoglycemia without coma (principal); Z79.4 Long term (current) use of insulin; E11.40 Type 2 diabetes mellitus with diabetic neuropathy, unspecified; I25.10 Atherosclerotic heart disease of native coronary artery without angina pectoris; K21.9 Gastro-esophageal reflux disease without esophagitis; E78.00 Pure hypercholesterolemia, unspecified; I10 Essential (primary) hypertension; Z79.84 Long term (current) use of oral hypoglycemic drugs; Z79.899 Other long term (current) drug therapy; Z79.82 Long term (current) use of aspirin; Z87.891 Personal history of nicotine dependence | CPT/HCPCS: 36416; 99284 ==

== ENCOUNTER 2022-08-04 16:00 | Emergency (ER) | payer MEDICARE | END 2022-08-04 17:44 | disposition home or self-care (01) | LOC: NAV ERS 16:00 | DX: R50.9 Fever, unspecified (principal); E11.9 Type 2 diabetes mellitus without complications; E78.00 Pure hypercholesterolemia, unspecified; I10 Essential (primary) hypertension; K21.9 Gastro-esophageal reflux disease without esophagitis; Z20.822 Contact with and (suspected) exposure to COVID-19; Z79.82 Long term (current) use of aspirin; Z79.84 Long term (current) use of oral hypoglycemic drugs; Z87.891 Personal history of nicotine dependence; Z79.4 Long term (current) use of insulin | CPT/HCPCS: 87804; 87807; 99283; U0003; U0005 ==

== ENCOUNTER 2022-09-26 11:40 | Emergency (ER) | payer MEDICARE ==
[2022-09-26] MEDS ORDERED: Aspirin Chewable 81 MG TAB ONE (12:17)
[2022-09-26 12:31] LABS: #Basophils 0.1 thou/uL (0.0-0.2); #Eosinphils 0.6 thou/uL (0.0-0.7); #Lymphocytes 2.3 thou/uL (1.20-3.40); #Monocytes 0.7 thou/uL (0.11-0.59); #Neutrophils 6.1 thou/uL (1.40-6.50); %Basophils 0.7 % (0.0-1.0); %Eosinophils 6.1 % (0.0-10.0); %Lymphocytes 23.4 % (21.0-51.0); %Monocytes 7.5 % (0.0-10.0); %Neutrophils 62.3 % (42.0-75.0); Hemoglobin 13.2 g/dL (14.0-18.0); Mean Corpuscular HGB CONC 30.5 g/dL (32.0-36.0); Mean Corpuscular Hemoglobin 29.3 pg (27.0-31.0); Mean Corpuscular Volume 96.1 fl (78.0-98.0); Mean Platelet Volume 8.3 fL (7.4-10.4); Platelet Count 215 10x3/uL (130-400); RBC Distribution Width 13.3 % (11.5-14.5); White Blood Cell (WBC) Count 9.7 10x3/uL (4.8-10.8)
[2022-09-26 12:52] LABS: ALT (SGPT) 15 U/L (8-55); AST (SGOT) 12 U/L (5-34); Albumin 3.9 g/dL (3.4-4.8); Alkaline Phosphatase 59 U/L (40-110); Anion Gap 15 mmol/L (10-20); BUN (Urea Nitrogen) 14 mg/dL (8.4-25.7); Bilirubin, Total 0.4 mg/dL (0.2-1.2); Calc. Creatinine Clearance 0 mL/min (70-130); Calcium 9.3 mg/dL (7.8-10.44); Carbon Dioxide 27 mmol/L (23-31); Chloride 100 mmol/L (98-107); Estimated GFR 80; Globulin 3.4 g/dL (2.4-3.5); Glucose 293 mg/dL (83-110); Potassium 4.5 mmol/L (3.5-5.1); Protein, Total 7.3 g/dL (5.8-8.1); Sodium 137 mmol/L (136-145)
== END 2022-09-26 14:00 | disposition home or self-care (01) ==
LOC: NAV ERS 11:40
DX: J32.9 Chronic sinusitis, unspecified (principal); R07.89 Other chest pain; T50.B95A Adverse effect of other viral vaccines, initial encounter; Z20.822 Contact with and (suspected) exposure to COVID-19; Z87.891 Personal history of nicotine dependence; K21.9 Gastro-esophageal reflux disease without esophagitis; I10 Essential (primary) hypertension; E78.00 Pure hypercholesterolemia, unspecified; E11.40 Type 2 diabetes mellitus with diabetic neuropathy, unspecified
CPT/HCPCS: 36415; 71046; 80053; 83880; 84484; 85025; 87070; 87205; 93005; U0003; U0005

== ENCOUNTER 2022-09-27 14:10 | Emergency (ER) | payer OTHER, MEDICARE ==
[2022-09-27] MEDS ORDERED: Rabies Vaccine Human 2.5 UNITS VIAL ONE (15:01)
[2022-09-27] MEDS ORDERED: Boostrix 0.5 ML (Tdap) VIAL (>/=7 yrs of age) ONE (15:37)
== END 2022-09-27 16:25 | disposition home or self-care (01) ==
LOC: NAV ERS 14:10
DX: S81.852A Open bite, left lower leg, initial encounter (principal); I25.10 Atherosclerotic heart disease of native coronary artery without angina pectoris; K21.9 Gastro-esophageal reflux disease without esophagitis; I25.2 Old myocardial infarction; E78.00 Pure hypercholesterolemia, unspecified; I10 Essential (primary) hypertension; E11.40 Type 2 diabetes mellitus with diabetic neuropathy, unspecified; W54.0XXA Bitten by dog, initial encounter; Y93.01 Activity, walking, marching and hiking; Y92.096 Garden or yard of other non-institutional residence as the place of occurrence of the external cause; Z23 Encounter for immunization; Z79.4 Long term (current) use of insulin; Z95.5 Presence of coronary angioplasty implant and graft; Z87.891 Personal history of nicotine dependence; Z79.82 Long term (current) use of aspirin; Z79.84 Long term (current) use of oral hypoglycemic drugs; Z79.899 Other long term (current) drug therapy
CPT/HCPCS: 90375; 90471; 90472; 90675; 90715; 96372

== ENCOUNTER → 2022-09-30 | Day surgery (SDC) | payer MEDICARE | END | disposition home or self-care (01) | LOC: NAV ER/OP 08:16 | PROVIDERS: ATTEND Emergency Medicine | DX: Z23 Encounter for immunization (principal); Z88.0 Allergy status to penicillin; Z88.2 Allergy status to sulfonamides; Z88.5 Allergy status to narcotic agent; Z91.013 Allergy to seafood; Z91.041 Radiographic dye allergy status | CPT/HCPCS: 90471 ==

== ENCOUNTER → 2022-10-04 | Day surgery (SDC) | payer MEDICARE ==
[~2022-10-04] MED LIST: Rabies Vaccine Human 2.5 UNITS VIAL ONE
== END | disposition home or self-care (01) ==
LOC: NAV ER/OP 08:35
PROVIDERS: ATTEND Emergency Medicine
DX: Z23 Encounter for immunization (principal); Z88.0 Allergy status to penicillin; Z88.2 Allergy status to sulfonamides; Z88.5 Allergy status to narcotic agent; Z91.013 Allergy to seafood; Z91.041 Radiographic dye allergy status
CPT/HCPCS: 90675

== ENCOUNTER 2022-10-08 15:24 | Emergency (ER) | payer MEDICARE | END 2022-10-08 15:47 | disposition home or self-care (01) | LOC: NAV ERS 15:24 | DX: R21 Rash and other nonspecific skin eruption (principal); I10 Essential (primary) hypertension; I25.10 Atherosclerotic heart disease of native coronary artery without angina pectoris; I25.2 Old myocardial infarction; E11.40 Type 2 diabetes mellitus with diabetic neuropathy, unspecified; E78.00 Pure hypercholesterolemia, unspecified; K21.9 Gastro-esophageal reflux disease without esophagitis; Z79.4 Long term (current) use of insulin; Z87.891 Personal history of nicotine dependence; Z95.5 Presence of coronary angioplasty implant and graft | CPT/HCPCS: 99282 ==

== ENCOUNTER → 2022-10-11 | Day surgery (SDC) | payer MEDICARE ==
[~2022-10-11] MED LIST changes: +Ibuprofen 200 MG TAB ONE
== END | disposition home or self-care (01) ==
LOC: NAV ER/OP 14:40
PROVIDERS: ATTEND Emergency Medicine
DX: Z23 Encounter for immunization (principal); Z88.0 Allergy status to penicillin; Z88.2 Allergy status to sulfonamides; Z88.5 Allergy status to narcotic agent; Z91.013 Allergy to seafood; Z91.041 Radiographic dye allergy status
CPT/HCPCS: 90675

== ENCOUNTER 2022-10-20 14:09 | Emergency (ER) | payer MEDICARE, OTHER | END 2022-10-20 15:06 | disposition home or self-care (01) | LOC: NAV ERS 14:09 | DX: S61.512A Laceration without foreign body of left wrist, initial encounter (principal); I25.10 Atherosclerotic heart disease of native coronary artery without angina pectoris; I25.2 Old myocardial infarction; E11.40 Type 2 diabetes mellitus with diabetic neuropathy, unspecified; K21.9 Gastro-esophageal reflux disease without esophagitis; E78.00 Pure hypercholesterolemia, unspecified; I10 Essential (primary) hypertension; Z87.891 Personal history of nicotine dependence; Z79.4 Long term (current) use of insulin; Z79.82 Long term (current) use of aspirin; Z79.899 Other long term (current) drug therapy; Z79.84 Long term (current) use of oral hypoglycemic drugs; W22.8XXA Striking against or struck by other objects, initial encounter ==

== ENCOUNTER 2022-10-22 07:44 | Emergency (ER) | payer MEDICARE | END 2022-10-22 08:32 | disposition home or self-care (01) | LOC: NAV ERS 07:44 | DX: S61.512A Laceration without foreign body of left wrist, initial encounter (principal); I25.10 Atherosclerotic heart disease of native coronary artery without angina pectoris; E11.9 Type 2 diabetes mellitus without complications; K21.9 Gastro-esophageal reflux disease without esophagitis; E78.00 Pure hypercholesterolemia, unspecified; I10 Essential (primary) hypertension; W23.0XXA Caught, crushed, jammed, or pinched between moving objects, initial encounter; Z87.891 Personal history of nicotine dependence; Z79.4 Long term (current) use of insulin | CPT/HCPCS: 99282 ==

== ENCOUNTER 2022-10-30 14:03 | Emergency (ER) | payer MEDICARE ==
[2022-10-30] MEDS ORDERED: Sodium Chloride 0.9% 500 ML ONE (14:28)
[2022-10-30 14:36] LABS: #Basophils 0.1 thou/uL (0.0-0.2); #Eosinphils 0.4 thou/uL (0.0-0.7); #Lymphocytes 2.5 thou/uL (1.20-3.40); #Monocytes 0.8 thou/uL (0.11-0.59); #Neutrophils 5.3 thou/uL (1.40-6.50); %Basophils 0.9 % (0.0-1.0); %Eosinophils 4.6 % (0.0-10.0); %Lymphocytes 27.7 % (21.0-51.0); %Monocytes 9.1 % (0.0-10.0); %Neutrophils 57.6 % (42.0-75.0); Hemoglobin 13.2 g/dL (14.0-18.0); Mean Corpuscular HGB CONC 31.5 g/dL (32.0-36.0); Mean Corpuscular Hemoglobin 29.1 pg (27.0-31.0); Mean Corpuscular Volume 92.4 fl (78.0-98.0); Mean Platelet Volume 7.6 fL (7.4-10.4); Platelet Count 225 10x3/uL (130-400); RBC Distribution Width 13.7 % (11.5-14.5); Red Blood Cell (RBC) Count 4.53 mill/uL (4.70-6.10); White Blood Cell (WBC) Count 9.2 10x3/uL (4.8-10.8)
[2022-10-30 14:54] LABS: ALT (SGPT) 15 U/L (8-55); AST (SGOT) 17 U/L (5-34); Alkaline Phosphatase 61 U/L (40-110); Anion Gap 15 mmol/L (10-20); BUN (Urea Nitrogen) 23 mg/dL (8.4-25.7); Bilirubin, Total 0.5 mg/dL (0.2-1.2); Calc. Creatinine Clearance 0 mL/min (70-130); Calcium 9.2 mg/dL (7.8-10.44); Carbon Dioxide 27 mmol/L (23-31); Chloride 99 mmol/L (98-107); Estimated GFR 59; Globulin 3.4 g/dL (2.4-3.5); Glucose 250 mg/dL (83-110); Potassium 4.8 mmol/L (3.5-5.1); Protein, Total 7.4 g/dL (5.8-8.1); Sodium 136 mmol/L (136-145)
== END 2022-10-30 15:37 | disposition home or self-care (01) ==
LOC: NAV ERS 14:03
DX: I95.9 Hypotension, unspecified (principal); I25.10 Atherosclerotic heart disease of native coronary artery without angina pectoris; I10 Essential (primary) hypertension; E11.40 Type 2 diabetes mellitus with diabetic neuropathy, unspecified; K21.9 Gastro-esophageal reflux disease without esophagitis; E78.00 Pure hypercholesterolemia, unspecified; I25.2 Old myocardial infarction; Z79.4 Long term (current) use of insulin; Z87.891 Personal history of nicotine dependence; Z95.5 Presence of coronary angioplasty implant and graft; Z79.82 Long term (current) use of aspirin; Z79.84 Long term (current) use of oral hypoglycemic drugs; Z79.899 Other long term (current) drug therapy
CPT/HCPCS: 71045; 80053; 83880; 84484; 85025; 93005; 94760; J7030

== ENCOUNTER 2023-01-13 10:45 | Emergency (ER) | payer MEDICARE ==
[2023-01-13] MEDS ORDERED: Aspirin Chewable 81 MG TAB ONE (11:18)
[2023-01-13 11:23] LABS: #Basophils 0.1 thou/uL (0.0-0.2); #Eosinphils 0.4 thou/uL (0.0-0.7); #Lymphocytes 2.3 thou/uL (1.20-3.40); #Monocytes 0.8 thou/uL (0.11-0.59); #Neutrophils 5.7 thou/uL (1.40-6.50); %Basophils 0.9 % (0.0-1.0); %Eosinophils 4.3 % (0.0-10.0); %Lymphocytes 24.6 % (21.0-51.0); %Monocytes 8.9 % (0.0-10.0); %Neutrophils 61.2 % (42.0-75.0); Hemoglobin 13.1 g/dL (14.0-18.0); Mean Corpuscular HGB CONC 31.5 g/dL (32.0-36.0); Mean Corpuscular Hemoglobin 27.9 pg (27.0-31.0); Mean Corpuscular Volume 88.6 fl (78.0-98.0); Mean Platelet Volume 9.2 fL (7.4-10.4); Platelet Count 212 10x3/uL (130-400); RBC Distribution Width 12.8 % (11.5-14.5); Red Blood Cell (RBC) Count 4.69 mill/uL (4.70-6.10); White Blood Cell (WBC) Count 9.3 10x3/uL (4.8-10.8)
[2023-01-13 12:05] LABS: ALT (SGPT) 13 U/L (8-55); AST (SGOT) 14 U/L (5-34); Albumin 4.2 g/dL (3.4-4.8); Alkaline Phosphatase 66 U/L (40-110); Anion Gap 17 mmol/L (10-20); BUN (Urea Nitrogen) 12 mg/dL (8.4-25.7); Bilirubin, Total 0.7 mg/dL (0.2-1.2); Calc. Creatinine Clearance 0 mL/min (70-130); Calcium 9.6 mg/dL (7.8-10.44); Carbon Dioxide 25 mmol/L (23-31); Chloride 101 mmol/L (98-107); Estimated GFR 91; Globulin 3.4 g/dL (2.4-3.5); Glucose 177 mg/dL (83-110); Potassium 4.2 mmol/L (3.5-5.1); Protein, Total 7.6 g/dL (5.8-8.1); Sodium 139 mmol/L (136-145)
[2023-01-13] MEDS ORDERED: Dextrose 50% Abboject 50 ML SYRINGE ONE (13:51)
== END 2023-01-13 15:45 | disposition home or self-care (01) ==
LOC: NAV ERS 10:45
DX: R07.89 Other chest pain (principal); I25.10 Atherosclerotic heart disease of native coronary artery without angina pectoris; E11.40 Type 2 diabetes mellitus with diabetic neuropathy, unspecified; E78.00 Pure hypercholesterolemia, unspecified; K21.9 Gastro-esophageal reflux disease without esophagitis; I10 Essential (primary) hypertension; Z79.4 Long term (current) use of insulin; Z87.891 Personal history of nicotine dependence; Z79.84 Long term (current) use of oral hypoglycemic drugs
CPT/HCPCS: 36415; 36416; 71045; 80053; 83880; 84484; 85025; 85379; 93005; 96374; J7999

== ENCOUNTER 2023-01-29 18:00 | Emergency (ER) | payer MEDICARE ==
[2023-01-29] MEDS ORDERED: Aspirin Chewable 81 MG TAB ONE (18:44)
[2023-01-29] MEDS ORDERED: Nitroglycerin 2% Ointment 1 INCH/1 GM Packet ONE (18:44)
[2023-01-29 19:10] LABS: #Basophils 0.1 thou/uL (0.0-0.2); #Eosinphils 0.4 thou/uL (0.0-0.7); #Lymphocytes 2.9 thou/uL (1.20-3.40); #Monocytes 0.9 thou/uL (0.11-0.59); #Neutrophils 5.7 thou/uL (1.40-6.50); %Basophils 1.2 % (0.0-1.0); %Eosinophils 4.1 % (0.0-10.0); %Lymphocytes 28.9 % (21.0-51.0); %Monocytes 9.2 % (0.0-10.0); %Neutrophils 56.8 % (42.0-75.0); Hemoglobin 12.9 g/dL (14.0-18.0); Mean Corpuscular HGB CONC 31.4 g/dL (32.0-36.0); Mean Corpuscular Hemoglobin 27.8 pg (27.0-31.0); Mean Corpuscular Volume 88.8 fl (78.0-98.0); Mean Platelet Volume 8.9 fL (7.4-10.4); Platelet Count 210 10x3/uL (130-400); RBC Distribution Width 12.9 % (11.5-14.5); Red Blood Cell (RBC) Count 4.63 mill/uL (4.70-6.10)
[2023-01-29 19:42] LABS: ALT (SGPT) 23 U/L (8-55); AST (SGOT) 35 U/L (5-34); Alkaline Phosphatase 61 U/L (40-110); Anion Gap 17 mmol/L (10-20); BUN (Urea Nitrogen) 13 mg/dL (8.4-25.7); Bilirubin, Total 0.8 mg/dL (0.2-1.2); Calc. Creatinine Clearance 0 mL/min (70-130); Calcium 9.1 mg/dL (7.8-10.44); Carbon Dioxide 25 mmol/L (23-31); Chloride 93 mmol/L (98-107); Estimated GFR 83; Globulin 3.5 g/dL (2.4-3.5); Glucose 280 mg/dL (83-110); Lipase 24 U/L (8-78); Potassium 4.9 mmol/L (3.5-5.1); Protein, Total 7.5 g/dL (5.8-8.1); Sodium 130 mmol/L (136-145)
== END 2023-01-29 20:25 | disposition home or self-care (01) ==
LOC: NAV ERS 18:00
DX: E11.65 Type 2 diabetes mellitus with hyperglycemia (principal); E87.1 Hypo-osmolality and hyponatremia; E78.5 Hyperlipidemia, unspecified; I10 Essential (primary) hypertension; Z79.82 Long term (current) use of aspirin; Z79.84 Long term (current) use of oral hypoglycemic drugs
CPT/HCPCS: 36416; 71045; 80053; 83690; 84484; 85025; 93005; 36415-59

== ENCOUNTER 2023-04-06 07:59 | Emergency (ER) | payer MEDICARE | END 2023-04-06 08:25 | disposition home or self-care (01) | LOC: NAV ERS 07:59 | DX: M79.644 Pain in right finger(s) (principal); E11.9 Type 2 diabetes mellitus without complications; E78.5 Hyperlipidemia, unspecified; I10 Essential (primary) hypertension; Z79.899 Other long term (current) drug therapy; Z79.82 Long term (current) use of aspirin; Z79.4 Long term (current) use of insulin; Z79.84 Long term (current) use of oral hypoglycemic drugs | CPT/HCPCS: 99283 ==

== ENCOUNTER 2023-06-13 11:25 | Emergency (ER) | payer MEDICARE, OTHER | END 2023-06-13 11:50 | disposition home or self-care (01) | LOC: NAV ERS 11:25 | DX: K62.89 Other specified diseases of anus and rectum (principal); E11.9 Type 2 diabetes mellitus without complications; I10 Essential (primary) hypertension; E78.5 Hyperlipidemia, unspecified; Z79.899 Other long term (current) drug therapy; Z79.84 Long term (current) use of oral hypoglycemic drugs | CPT/HCPCS: 99283 ==

== ENCOUNTER 2023-07-06 07:48 | Emergency (ER) | payer MEDICARE | END 2023-07-06 08:32 | disposition home or self-care (01) | LOC: NAV ERS 07:48 | DX: M77.11 Lateral epicondylitis, right elbow (principal); E11.9 Type 2 diabetes mellitus without complications; I10 Essential (primary) hypertension | CPT/HCPCS: 99283 ==

== ENCOUNTER 2023-09-06 08:02 | Emergency (ER) | payer MEDICARE | END 2023-09-06 09:30 | disposition home or self-care (01) | LOC: NAV ERS 08:02 | DX: Z48.817 Encounter for surgical aftercare following surgery on the skin and subcutaneous tissue (principal); E11.9 Type 2 diabetes mellitus without complications; I10 Essential (primary) hypertension; Z79.899 Other long term (current) drug therapy; Z79.4 Long term (current) use of insulin; Z79.84 Long term (current) use of oral hypoglycemic drugs; Z79.82 Long term (current) use of aspirin | CPT/HCPCS: 99282 ==

== ENCOUNTER 2023-09-09 13:16 | Emergency (ER) | payer MEDICARE | END 2023-09-09 13:35 | disposition home or self-care (01) | LOC: NAV ERS 13:16 | DX: Z48.01 Encounter for change or removal of surgical wound dressing (principal); E11.9 Type 2 diabetes mellitus without complications; I10 Essential (primary) hypertension; I25.10 Atherosclerotic heart disease of native coronary artery without angina pectoris; Z79.82 Long term (current) use of aspirin; Z79.899 Other long term (current) drug therapy; Z79.84 Long term (current) use of oral hypoglycemic drugs; Z79.4 Long term (current) use of insulin | CPT/HCPCS: 99282 ==

== ENCOUNTER 2023-09-20 15:00 | Emergency (ER) | payer MEDICARE ==
[2023-09-20] MEDS ORDERED: Boostrix 0.5 ML (Tdap) VIAL (>/=7 yrs of age) ONE (16:09)
[2023-09-20] MEDS ORDERED: Mupirocin 2% Ointment 22 GM Tube ONE (16:19)
== END 2023-09-20 16:31 | disposition home or self-care (01) ==
LOC: NAV ERS 15:00
DX: S91.331A Puncture wound without foreign body, right foot, initial encounter (principal); S90.811A Abrasion, right foot, initial encounter; E11.9 Type 2 diabetes mellitus without complications; I10 Essential (primary) hypertension; I25.10 Atherosclerotic heart disease of native coronary artery without angina pectoris; W45.0XXA Nail entering through skin, initial encounter; Y93.01 Activity, walking, marching and hiking; Z23 Encounter for immunization; Z79.84 Long term (current) use of oral hypoglycemic drugs; Z79.4 Long term (current) use of insulin; Z79.82 Long term (current) use of aspirin; Z79.899 Other long term (current) drug therapy
CPT/HCPCS: 90471; 90715

== ENCOUNTER 2023-12-18 08:12 | Emergency (ER) | payer MEDICARE | END 2023-12-18 08:45 | disposition home or self-care (01) | LOC: NAV ERS 08:12 | DX: M79.10 Myalgia, unspecified site (principal); I10 Essential (primary) hypertension; E11.9 Type 2 diabetes mellitus without complications; I25.10 Atherosclerotic heart disease of native coronary artery without angina pectoris; Z79.84 Long term (current) use of oral hypoglycemic drugs; Z79.4 Long term (current) use of insulin; Z79.82 Long term (current) use of aspirin | CPT/HCPCS: 99283 ==

== ENCOUNTER 2024-01-30 16:58 | Emergency (ER) | payer MEDICARE | END 2024-01-30 17:55 | disposition home or self-care (01) | LOC: NAV ERS 16:58 | DX: S60.511A Abrasion of right hand, initial encounter (principal); S80.212A Abrasion, left knee, initial encounter; S80.211A Abrasion, right knee, initial encounter; E11.9 Type 2 diabetes mellitus without complications; I10 Essential (primary) hypertension; W18.30XA Fall on same level, unspecified, initial encounter | CPT/HCPCS: 99283 ==

== ENCOUNTER 2024-02-02 09:36 | Emergency (ER) | payer MEDICARE | END 2024-02-02 10:15 | disposition home or self-care (01) | LOC: NAV ERS 09:36 | DX: S50.311D Abrasion of right elbow, subsequent encounter (principal); I25.10 Atherosclerotic heart disease of native coronary artery without angina pectoris; E11.9 Type 2 diabetes mellitus without complications; I10 Essential (primary) hypertension; W19.XXXD Unspecified fall, subsequent encounter | CPT/HCPCS: 99283 ==

== ENCOUNTER 2024-02-12 07:21 | Emergency (ER) | payer MEDICARE | END 2024-02-12 07:45 | disposition home or self-care (01) | LOC: NAV ERS 07:21 | DX: S50.311D Abrasion of right elbow, subsequent encounter (principal); E11.9 Type 2 diabetes mellitus without complications; I10 Essential (primary) hypertension; I25.10 Atherosclerotic heart disease of native coronary artery without angina pectoris; X58.XXXD Exposure to other specified factors, subsequent encounter; Z79.84 Long term (current) use of oral hypoglycemic drugs; Z79.4 Long term (current) use of insulin; Z79.82 Long term (current) use of aspirin; Z79.899 Other long term (current) drug therapy | CPT/HCPCS: 99282 ==

== ENCOUNTER 2024-03-11 11:11 | Emergency (ER) | payer MEDICARE ==
[2024-03-11 12:27] LABS: Influenza A by NAA Not Detected (NotDetected); Influenza B by NAA Not Detected (NotDetected); SARS-CoV-2 NAA Rapid Test Not Detected (NotDetected)
== END 2024-03-11 12:45 | disposition home or self-care (01) ==
LOC: NAV ERS 11:11
DX: J06.9 Acute upper respiratory infection, unspecified (principal); E11.9 Type 2 diabetes mellitus without complications; I10 Essential (primary) hypertension; Z79.899 Other long term (current) drug therapy; Z79.4 Long term (current) use of insulin; Z79.82 Long term (current) use of aspirin; Z79.84 Long term (current) use of oral hypoglycemic drugs
CPT/HCPCS: 99283

== ENCOUNTER 2024-03-27 17:12 | Emergency (ER) | payer MEDICARE ==
[2024-03-27] MEDS ORDERED: Clindamycin 150 MG CAP ONE (18:34)
== END 2024-03-27 18:44 | disposition home or self-care (01) ==
LOC: NAV ERS 17:12
DX: L03.115 Cellulitis of right lower limb (principal); I10 Essential (primary) hypertension; E11.9 Type 2 diabetes mellitus without complications
CPT/HCPCS: 99282

== ENCOUNTER 2024-04-22 18:38 | Emergency (ER) | payer MEDICARE ==
[2024-04-22] MEDS ORDERED: guaiFENesin ER 600 MG TAB ONE (19:02)
[2024-04-22] MEDS ORDERED: Ketorolac Tromethamine 30 MG (1 mL) VIAL ONE (19:03)
[2024-04-22] MEDS ORDERED: Sodium Chloride 0.9% 1,000 ML ONE (19:03)
[2024-04-22 19:09] LABS: #Eosinphils 0.5 thou/uL (0.0-0.7); #Lymphocytes 2.6 thou/uL (1.20-3.40); #Monocytes 0.6 thou/uL (0.11-0.59); #Neutrophils 4.5 thou/uL (1.40-6.50); %Basophils 0.5 % (0.0-1.0); %Eosinophils 5.6 % (0.0-10.0); %Lymphocytes 31.6 % (21.0-51.0); %Monocytes 7.9 % (0.0-10.0); %Neutrophils 54.5 % (42.0-75.0); Hematocrit 35.8 % (42.0-52.0); Hemoglobin 11.1 g/dL (14.0-18.0); Mean Corpuscular HGB CONC 30.9 g/dL (32.0-36.0); Mean Corpuscular Hemoglobin 26.7 pg (27.0-31.0); Mean Corpuscular Volume 86.2 fl (78.0-98.0); Mean Platelet Volume 7.5 fL (7.4-10.4); Platelet Count 242 10x3/uL (130-400); RBC Distribution Width 12.9 % (11.5-14.5); Red Blood Cell (RBC) Count 4.15 mill/uL (4.70-6.10); White Blood Cell (WBC) Count 8.2 10x3/uL (4.8-10.8)
[2024-04-22 19:23] LABS: ALT (SGPT) 15 U/L (8-55); AST (SGOT) 18 U/L (5-34); Alkaline Phosphatase 53 U/L (40-110); Anion Gap 14 mmol/L (10-20); BUN (Urea Nitrogen) 15 mg/dL (8.4-25.7); Bilirubin, Total 0.4 mg/dL (0.2-1.2); Calc. Creatinine Clearance 0 mL/min (70-130); Calcium 9.4 mg/dL (7.8-10.44); Carbon Dioxide 28 mmol/L (23-31); Chloride 100 mmol/L (98-107); Estimated GFR 93; Globulin 3.9 g/dL (2.4-3.5); Glucose 215 mg/dL (83-110); Potassium 3.8 mmol/L (3.5-5.1); Protein, Total 6.9 g/dL (5.8-8.1); Sodium 138 mmol/L (136-145)
[2024-04-22 19:27] LABS: Troponin I 0.015 ng/mL (< 0.028)
[2024-04-22 19:52] LABS: Bilirubin Negative (Negative); Blood, Urine Trace (Negative); Clarity Clear (Clear); Glucose, Urine (Dipstick) 500 mg/dL (Negative); Ketone, Urine Negative (Negative); Leukocyte Negative (Negative); Nitrite Negative (Negative); Protein, Urine (Dipstick) Negative (Neg-Trace); Urobilinogen 0.2 mg/dL (Less than 2)
[2024-04-22] MEDS ORDERED: Dexamethasone 4 mg/ml Vial ONE (21:19)
[2024-04-22] MEDS ORDERED: metFORMIN 500 MG TAB ONE (21:39)
[2024-04-22] MEDS ORDERED: clonazePAM 0.5 MG TAB ONE (21:39)
[2024-04-22] MEDS ORDERED: Simvastatin 10 MG TAB ONE (21:39)
[2024-04-22 22:29] LABS: Troponin I 0.026 ng/mL (< 0.028)
[2024-04-23 01:45] LABS: Troponin I 0.028 ng/mL (< 0.028)
[2024-04-23] MEDS ORDERED: Gabapentin 300 MG CAP ONE (07:34)
[2024-04-23] MEDS ORDERED: Carvedilol 3.125 MG TAB ONE (07:34)
[2024-04-23] MEDS ORDERED: Clopidogrel Bisulfate 75 MG TAB ONE (07:34)
[2024-04-23] MEDS ORDERED: Aspirin Chewable 81 MG TAB ONE (07:35)
[2024-04-23] MEDS ORDERED: Famotidine 20 MG TAB ONE (07:35)
[2024-04-23] MEDS ORDERED: metFORMIN 500 MG TAB ONE (07:35)
[2024-04-23] MEDS ORDERED: guaiFENesin ER 600 MG TAB ONE (07:55)
[2024-04-23] MEDS ORDERED: clonazePAM 0.5 MG TAB PO SCH (08:00)
[2024-04-23] MEDS ORDERED: Ketorolac Tromethamine 30 MG (1 mL) VIAL IVP SCH (08:00)
[2024-04-23] MEDS ORDERED: Atorvastatin Calcium 40 MG TAB PO SCH (08:00)
[2024-04-23] MEDS ORDERED: Lantus 1000 UNITS/10 ML VIAL SC SCH (08:00)
[2024-04-23] MEDS ORDERED: metFORMIN 500 MG TAB PO SCH (08:00)
[2024-04-23] MEDS ORDERED: Dexamethasone 4 mg/ml Vial SLOW IVP SCH (08:00)
[2024-04-23] MEDS ORDERED: Famotidine 20 MG TAB PO SCH (09:00)
[2024-04-23] MEDS ORDERED: Gabapentin 300 MG CAP PO SCH (09:00)
== END 2024-04-23 09:53 | disposition home or self-care (01) ==
LOC: NAV ERS 18:38
DX: U07.1 COVID-19 (principal); R07.81 Pleurodynia; I44.0 Atrioventricular block, first degree; R03.0 Elevated blood-pressure reading, without diagnosis of hypertension; J84.10 Pulmonary fibrosis, unspecified; I25.10 Atherosclerotic heart disease of native coronary artery without angina pectoris; E11.9 Type 2 diabetes mellitus without complications; I10 Essential (primary) hypertension; Z95.5 Presence of coronary angioplasty implant and graft; Z79.899 Other long term (current) drug therapy; Z79.82 Long term (current) use of aspirin; Z79.4 Long term (current) use of insulin; Z79.84 Long term (current) use of oral hypoglycemic drugs
CPT/HCPCS: 36415; 36416; 71045; 80053; 81001; 83605; 83880; 84484; 85025; 85379; 87040; 93005; 94760; 96374; 96375; J1100; J1885; J7030

== ENCOUNTER 2025-07-05 08:26 | Emergency (ER) | payer MEDICARE | END 2025-07-05 08:55 | disposition home or self-care (01) | LOC: NAV ERS 08:26 | DX: L03.211 Cellulitis of face (principal); E11.9 Type 2 diabetes mellitus without complications; I25.10 Atherosclerotic heart disease of native coronary artery without angina pectoris; I11.0 Hypertensive heart disease with heart failure; I50.9 Heart failure, unspecified; E78.5 Hyperlipidemia, unspecified; Z79.82 Long term (current) use of aspirin; Z79.899 Other long term (current) drug therapy; Z79.4 Long term (current) use of insulin; Z79.84 Long term (current) use of oral hypoglycemic drugs ==